=== PATIENT | male | born 1990 | race Caucasian/White ===

== ENCOUNTER 2018-03-03 00:53 | Inpatient (IN) | payer MEDICAID, OTHER ==
[~2018-03-03] VITALS: Ht 175.3 cm; Wt 80.7 kg
[2018-03-03] MEDS ORDERED: METH10 PO (01:08)
[2018-03-03 02:14] LABS: BASOPHILS % (AUTO) 1.4 % (0.0-2.0); HEMATOCRIT 36.5 % (41-53); HEMOGLOBIN 12.1 g/dL (13.5-17.5); LYMPHOCYTES # (AUTO) 1.6 K/uL (1.0-4.8); LYMPHOCYTES % (AUTO) 21.2 % (22.0-44.0); MEAN CORPUSCULAR HEMOGLOBIN 27.7 pg (26.0-34.0); MEAN CORPUSCULAR HGB CONC 33.2 G/dL (31.0-37.0); MEAN CORPUSCULAR VOLUME 84 fL (80-100); MONOCYTES # (AUTO) 0.6 K/uL (0.1-1.0); MONOCYTES % (AUTO) 7.8 % (2.0-9.0); NEUTROPHILS # (AUTO) 4.8 K/uL (1.8-7.7); NEUTROPHILS % (AUTO) 63.6 % (40.0-70.0); PLATELET COUNT (AUTO) 292 K/uL (150-450); RED BLOOD CELL COUNT(AUTO) 4.37 MIL/uL (4.50-5.90); RED CELL DISTRIBUTION WIDTH 14.2 % (11.5-14.5)
[2018-03-03 02:22] LABS: ANION GAP 5 mmol/L (8-16); CALCIUM, TOTAL 8.6 mg/dL (8.8-10.5); CARBON DIOXIDE 30 mmol/L (22-29); CHLORIDE 103 mmol/L (98-107); CREATININE 0.89 mg/dL (0.60-1.30); GLOMERULAR FILTR. RATE CALC > 60 mL/min (>60); GLUCOSE,RANDOM 98 mg/dL (70-110); POTASSIUM 3.9 mmol/L (3.5-5.1); SODIUM SERUM 138 mmol/L (136-145); UREA NITROGEN, BLOOD 21 mg/dL (7-18)
[2018-03-03 02:27] LABS: ALANINE AMINOTRANSFERASE 69 U/L (12-78); ALBUMIN 3.4 g/dL (3.4-5.0); ALKALINE PHOSPHATASE 94 U/L (46-116); ASPARTATE AMINOTRANSFERASE 50 U/L (15-37); BILIRUBIN,TOTAL 0.4 mg/dL (0.1-1.0); TOTAL PROTEIN, SERUM 6.7 g/dL (6.4-8.2)
[2018-03-03] MEDS ORDERED: ZOLPIDEM TARTRATE 10 MG TABLET PO PRN (04:15)
[2018-03-03] MEDS ORDERED: HALOPERIDOL 5 MG TABLET PO PRN (04:15)
[2018-03-03] MEDS ORDERED: LORazepam 2 MG TABLET PO PRN (04:15)
[2018-03-03 12:12] VITALS: BP 121/82
[2018-03-03 16:13] VITALS: BP 122/77
[2018-03-03] MEDS ORDERED: IBUPROFEN 400 MG TABLET PO PRN (20:15)
[2018-03-03] MEDS ORDERED: ACETAMINOPHEN 325 MG TABLET PO PRN (20:15)
[2018-03-04 03:55] VITALS: BP 120/81
[2018-03-04 08:53] VITALS: BP 117/68
[2018-03-04 08:55] LABS: CHOL/HDL RATIO 2.5 (4.2-7.3)
[2018-03-04] MEDS: METHADONE HCL 10 MG TABLET PO SCH (09:50)
[2018-03-04 16:12] VITALS: BP 105/65
[2018-03-05 06:45] VITALS: BP 111/64
[2018-03-05 08:39] VITALS: BP 112/76
[2018-03-05] MEDS: CITALOPRAM HYDROBROMIDE 20 MG TABLET PO SCH (09:18)
[2018-03-05] MEDS: METHADONE HCL 10 MG TABLET PO SCH (09:18)
[2018-03-05 16:09] VITALS: BP 113/62
[2018-03-05] MEDS ORDERED: PETROLATUM,WHITE 71 GM JELLY TP PRN (16:15)
[2018-03-06 06:33] VITALS: BP 108/62
[2018-03-06 09:00] VITALS: BP 102/74
[2018-03-06] MEDS: CITALOPRAM HYDROBROMIDE 20 MG TABLET PO SCH (09:09)
[2018-03-06] MEDS: METHADONE HCL 10 MG TABLET PO SCH (09:09)
[2018-03-06] MEDS: NICOTINE 21 MG/24 HOUR PATCH TD SCH (15:57)
[2018-03-06 16:05] VITALS: BP 115/62
[2018-03-07 06:30] VITALS: BP 108/62
[2018-03-07 09:05] VITALS: BP 98/50
[2018-03-07 09:34] VITALS: BP 119/74
[2018-03-07] MEDS: CITALOPRAM HYDROBROMIDE 20 MG TABLET PO SCH (09:36)
[2018-03-07] MEDS: NICOTINE 21 MG/24 HOUR PATCH TD SCH (09:36)
[2018-03-07] MEDS: METHADONE HCL 10 MG TABLET PO SCH (09:36)
[2018-03-07 16:18] VITALS: BP 112/67
[2018-03-07] MEDS: OLANZapine 7.5 MG TABLET PO SCH (21:05)
[2018-03-08 06:42] VITALS: BP 110/69
[2018-03-08 08:40] VITALS: BP 100/79
[2018-03-08] MEDS: CITALOPRAM HYDROBROMIDE 20 MG TABLET PO SCH (09:54)
[2018-03-08] MEDS: NICOTINE 21 MG/24 HOUR PATCH TD SCH (09:54)
[2018-03-08] MEDS: METHADONE HCL 10 MG TABLET PO SCH (09:54)
[2018-03-08 16:30] VITALS: BP 110/76
[2018-03-08] MEDS: OLANZapine 7.5 MG TABLET PO SCH (20:48)
[2018-03-09 06:09] VITALS: BP 120/81
[2018-03-09 08:40] VITALS: BP 108/72
[2018-03-09] MEDS: CITALOPRAM HYDROBROMIDE 20 MG TABLET PO SCH (10:27)
[2018-03-09] MEDS: METHADONE HCL 10 MG TABLET PO SCH (10:27)
[2018-03-09] MEDS: NICOTINE 21 MG/24 HOUR PATCH TD SCH (10:33)
[2018-03-09] MEDS ORDERED: OLAN10TA3 PO (12:17)
[2018-03-09] MEDS ORDERED: CITA20TA9 PO (12:17)
== END 2018-03-09 13:20 | disposition home or self-care (01) | DRG 750 ==
LOC: EMS 00:54 → B2S 07:43
PROVIDERS: ADMIT Psychiatry & Neurology Psychiatry; ATTEND Psychiatry & Neurology Psychiatry
DX: F25.9 Schizoaffective disorder, unspecified (principal); Z59.0 Homelessness; F32.9 Major depressive disorder, single episode, unspecified; B18.2 Chronic viral hepatitis C; D64.9 Anemia, unspecified; Y90.1 Blood alcohol level of 20-39 mg/100 ml; F10.10 Alcohol abuse, uncomplicated; F12.90 Cannabis use, unspecified, uncomplicated; F15.90 Other stimulant use, unspecified, uncomplicated; F17.210 Nicotine dependence, cigarettes, uncomplicated; F11.90 Opioid use, unspecified, uncomplicated; Z79.899 Other long term (current) drug therapy; Z71.51 Drug abuse counseling and surveillance of drug abuser; Z71.41 Alcohol abuse counseling and surveillance of alcoholic
CPT/HCPCS: G0480

== ENCOUNTER 2018-05-18 02:43 | Emergency (ER) | payer MEDICAID ==
[~2018-05-18 02:43] MED LIST: CITA-106 PO; OLAN10TA3 PO
[2018-05-18] MEDS ORDERED: METH10 PO (05:23)
== END 2018-05-18 03:30 | disposition left against medical advice (07) ==
LOC: EMS 02:43
DX: F41.9 Anxiety disorder, unspecified (principal); Z53.21 Procedure and treatment not carried out due to patient leaving prior to being seen by health care provider

== ENCOUNTER 2018-05-18 04:52 | Emergency (ER) | payer MEDICAID ==
[~2018-05-18] VITALS: Ht 175.3 cm; Wt 0.8 kg
[2018-05-18 04:56] VITALS: BP 118/63
[2018-05-18] MEDS ORDERED: METH10 PO (05:23)
[2018-05-18 06:13] LABS: BASOPHILS % (AUTO) 0.7 % (0.0-2.0); EOSINOPHILS % (AUTO) 3.4 % (1.0-6.0); HEMATOCRIT 32.7 % (41-53); HEMOGLOBIN 11.3 g/dL (13.5-17.5); LYMPHOCYTES # (AUTO) 1.7 K/uL (1.0-4.8); LYMPHOCYTES % (AUTO) 15.2 % (22.0-44.0); MEAN CORPUSCULAR HEMOGLOBIN 28.5 pg (26.0-34.0); MEAN CORPUSCULAR HGB CONC 34.4 G/dL (31.0-37.0); MEAN CORPUSCULAR VOLUME 83 fL (80-100); MONOCYTES # (AUTO) 1.4 K/uL (0.1-1.0); MONOCYTES % (AUTO) 12.5 % (2.0-9.0); NEUTROPHILS # (AUTO) 7.7 K/uL (1.8-7.7); NEUTROPHILS % (AUTO) 68.2 % (40.0-70.0); PLATELET COUNT (AUTO) 368 K/uL (150-450); RED BLOOD CELL COUNT(AUTO) 3.94 MIL/uL (4.50-5.90); RED CELL DISTRIBUTION WIDTH 13.4 % (11.5-14.5)
[2018-05-18 06:28] LABS: ANION GAP 5 mmol/L (8-16); CALCIUM, TOTAL 8.7 mg/dL (8.8-10.5); CARBON DIOXIDE 30 mmol/L (22-29); CHLORIDE 102 mmol/L (98-107); GLOMERULAR FILTR. RATE CALC > 60 mL/min (>60); GLUCOSE,RANDOM 89 mg/dL (70-110); POTASSIUM 4.2 mmol/L (3.5-5.1); SODIUM SERUM 137 mmol/L (136-145); UREA NITROGEN, BLOOD 12 mg/dL (7-18)
[2018-05-18 06:34] LABS: ALANINE AMINOTRANSFERASE 31 U/L (12-78); ALBUMIN 2.8 g/dL (3.4-5.0); ALKALINE PHOSPHATASE 90 U/L (46-116); ASPARTATE AMINOTRANSFERASE 31 U/L (15-37); BILIRUBIN,TOTAL 0.4 mg/dL (0.1-1.0); TOTAL PROTEIN, SERUM 6.8 g/dL (6.4-8.2)
== END 2018-05-18 06:05 | disposition left against medical advice (07) ==
LOC: EMS 04:53
DX: F22 Delusional disorders (principal); F41.9 Anxiety disorder, unspecified; F17.210 Nicotine dependence, cigarettes, uncomplicated; Z53.21 Procedure and treatment not carried out due to patient leaving prior to being seen by health care provider
CPT/HCPCS: 36415; 80053; 85025; G0480

== ENCOUNTER 2018-06-04 12:12 | Emergency (ER) | payer MEDICAID ==
[~2018-06-04] VITALS: Ht 175.3 cm; Wt 75.9 kg
[~2018-06-04 12:12] MED LIST changes: +METH10 PO
[2018-06-04] MEDS ORDERED: METH10 PO (12:32)
[2018-06-04] MEDS ORDERED: CEPHALEXIN MONOHYDRATE 500 MG CAPSULE PO ONE (13:30)
[2018-06-04] MEDS ORDERED: SULFAMETHOX/TRIMETH DS 800-160 MG/TABLET PO ONE (13:30)
[2018-06-04] MEDS ORDERED: LIDOCAINE HCL 1% 10 ML VIAL INJ ONE (13:30)
[2018-06-04 15:19] LABS: BASOPHILS % (AUTO) 0.5 % (0.0-2.0); EOSINOPHILS % (AUTO) 3.3 % (1.0-6.0); HEMATOCRIT 33.3 % (41-53); HEMOGLOBIN 11.1 g/dL (13.5-17.5); LYMPHOCYTES # (AUTO) 1.8 K/uL (1.0-4.8); LYMPHOCYTES % (AUTO) 17.1 % (22.0-44.0); MEAN CORPUSCULAR HEMOGLOBIN 28.1 pg (26.0-34.0); MEAN CORPUSCULAR HGB CONC 33.4 G/dL (31.0-37.0); MEAN CORPUSCULAR VOLUME 84 fL (80-100); MONOCYTES % (AUTO) 9.1 % (2.0-9.0); NEUTROPHILS # (AUTO) 7.4 K/uL (1.8-7.7); PLATELET COUNT (AUTO) 299 K/uL (150-450); RED BLOOD CELL COUNT(AUTO) 3.96 MIL/uL (4.50-5.90)
[2018-06-04 15:30] LABS: ANION GAP 4 mmol/L (8-16); CALCIUM, TOTAL 8.5 mg/dL (8.8-10.5); CARBON DIOXIDE 35 mmol/L (22-29); CHLORIDE 99 mmol/L (98-107); CREATININE 0.86 mg/dL (0.60-1.30); GLOMERULAR FILTR. RATE CALC > 60 mL/min (>60); GLUCOSE,RANDOM 93 mg/dL (70-110); POTASSIUM 3.9 mmol/L (3.5-5.1); SODIUM SERUM 138 mmol/L (136-145); UREA NITROGEN, BLOOD 10 mg/dL (7-18)
[2018-06-04 16:49] VITALS: BP 125/74
== END 2018-06-04 16:50 | disposition home or self-care (01) ==
LOC: EMS 12:14
DX: L02.416 Cutaneous abscess of left lower limb (principal); F17.210 Nicotine dependence, cigarettes, uncomplicated; F12.90 Cannabis use, unspecified, uncomplicated; F19.90 Other psychoactive substance use, unspecified, uncomplicated; F11.90 Opioid use, unspecified, uncomplicated; Z59.0 Homelessness
CPT/HCPCS: 10060; 36415; 80048; 80074; 85025; 87340; 99284; 99406; J3490

== ENCOUNTER 2018-07-16 02:57 | Emergency (ER) | payer MEDICAID ==
[~2018-07-16] VITALS: Ht 175.3 cm; Wt 72.7 kg
[~2018-07-16 02:57] MED LIST changes: -CITA-106 PO; -OLAN10TA3 PO
[2018-07-16 03:50] LABS: BASOPHILS % (AUTO) 0.6 % (0.0-2.0); HEMATOCRIT 36.6 % (41-53); HEMOGLOBIN 12.2 g/dL (13.5-17.5); LYMPHOCYTES % (AUTO) 10.7 % (22.0-44.0); MEAN CORPUSCULAR HEMOGLOBIN 28.2 pg (26.0-34.0); MEAN CORPUSCULAR HGB CONC 33.2 G/dL (31.0-37.0); MEAN CORPUSCULAR VOLUME 85 fL (80-100); MONOCYTES # (AUTO) 0.7 K/uL (0.1-1.0); NEUTROPHILS # (AUTO) 7.5 K/uL (1.8-7.7); NEUTROPHILS % (AUTO) 79.7 % (40.0-70.0); PLATELET COUNT (AUTO) 283 K/uL (150-450); RED BLOOD CELL COUNT(AUTO) 4.31 MIL/uL (4.50-5.90); RED CELL DISTRIBUTION WIDTH 15.3 % (11.5-14.5)
[2018-07-16 03:53] LABS: ANION GAP 10 mmol/L (8-16); CALCIUM, TOTAL 9.1 mg/dL (8.8-10.5); CARBON DIOXIDE 27 mmol/L (22-29); CHLORIDE 103 mmol/L (98-107); CREATININE 0.91 mg/dL (0.60-1.30); GLOMERULAR FILTR. RATE CALC > 60 mL/min (>60); GLUCOSE,RANDOM 117 mg/dL (70-110); POTASSIUM 3.7 mmol/L (3.5-5.1); SODIUM SERUM 140 mmol/L (136-145); UREA NITROGEN, BLOOD 11 mg/dL (7-18)
[2018-07-16 04:00] LABS: ALANINE AMINOTRANSFERASE 33 U/L (12-78); ALKALINE PHOSPHATASE 100 U/L (46-116); ASPARTATE AMINOTRANSFERASE 29 U/L (15-37); BILIRUBIN,TOTAL 0.5 mg/dL (0.1-1.0); TOTAL PROTEIN, SERUM 6.8 g/dL (6.4-8.2)
[2018-07-16 04:44] LABS: AMPHET/METH SCREEN,URINE POSITIVE (NEGATIVE); BARBITURATE SCREEN, URINE NEGATIVE (NEGATIVE); BENZODIAZEPINES SCREEN,URINE POSITIVE (NEGATIVE); CANNABINOID SCREEN,URINE POSITIVE (NEGATIVE); COCAINE SCREEN,URINE NEGATIVE (NEGATIVE); METHADONE SCREEN, URINE NEGATIVE (NEGATIVE); OPIATE SCREEN,URINE POSITIVE (NEGATIVE)
[2018-07-16 05:12] LABS: PHENCYCLIDINE SCREEN,URINE NEGATIVE (NEGATIVE)
[2018-07-16 05:45] VITALS: BP 125/81
[2018-07-21] MEDS ORDERED: ESCI20TA PO (13:06)
[2018-07-21] MEDS ORDERED: ASCO500 PO (13:07)
[2018-07-21] MEDS ORDERED: MULT-1239 PO (13:08)
[2018-07-21] MEDS ORDERED: BACI120O TP (13:08)
== END 2018-07-16 06:10 | disposition home or self-care (01) ==
LOC: EMS 02:58
DX: S90.822A Blister (nonthermal), left foot, initial encounter (principal); S90.821A Blister (nonthermal), right foot, initial encounter; F41.9 Anxiety disorder, unspecified; F15.10 Other stimulant abuse, uncomplicated; F19.10 Other psychoactive substance abuse, uncomplicated; F11.90 Opioid use, unspecified, uncomplicated; F20.9 Schizophrenia, unspecified; F17.210 Nicotine dependence, cigarettes, uncomplicated; Z90.49 Acquired absence of other specified parts of digestive tract; X58.XXXA Exposure to other specified factors, initial encounter; Y93.01 Activity, walking, marching and hiking; Y92.410 Unspecified street and highway as the place of occurrence of the external cause; Y99.8 Other external cause status
CPT/HCPCS: 36415; 80053; 80307; 85025; 99285; 99406; G0480